=== PATIENT | male | born 1940 | race Caucasian/White ===

== ENCOUNTER 2025-06-19 08:02 | Outpatient (RCR) | payer MEDICARE, SELFPAY ==
[2025-06-19] MEDS: SODIUM BICARBONATE 1150 MEQ IV (08:26)
[2025-06-19 08:41] VITALS: BP 168/93
[2025-06-19 08:49] VITALS: BP 178/86
== END 2025-06-25 23:59 | disposition home or self-care (01) ==
LOC: OID 08:02
PROVIDERS: ATTENDING PHYSICIAN Surgery Vascular Surgery; FAMILY PHYSICIAN Internal Medicine Geriatric Medicine
DX: I71.40 Abdominal aortic aneurysm, without rupture, unspecified (principal); N18.9 Chronic kidney disease, unspecified
CPT/HCPCS: 96365; 96366

== ENCOUNTER → 2025-06-19 08:14 | Outpatient (REF) | payer MEDICARE, SELFPAY | LOC: RAD 08:14 | PROVIDERS: ATTENDING PHYSICIAN Surgery Vascular Surgery; FAMILY PHYSICIAN Internal Medicine Geriatric Medicine | DX: I71.40 Abdominal aortic aneurysm, without rupture, unspecified (principal) | CPT/HCPCS: 74174; Q9967 ==